=== PATIENT | male | born 1960 | race African-American/Black ===

== ENCOUNTER 2021-05-06 06:26 | Inpatient (IN) | payer BC, OTHER ==
[~2021-05-06] VITALS: Ht 190.5 cm; Wt 78.0 kg
[2021-05-06 07:22] LABS: BASOPHILS % 0.8 % (0.0-2.0); EOSINOPHILS % 2.3 % (0.0-5.0); HEMATOCRIT. 43.5 % (42.0-52.0); HEMOGLOBIN. 14.3 g/dL (14.0-18.0); LYMPHOCYTES % 34.6 % (20.0-50.0); MEAN CORPUSCULAR VOLUME 91.6 fL (80.0-94.0); MEAN PLATELET VOLUME 8.9 fl (7.4-10.4); MONOCYTES % 9.4 % (2.0-8.0); NEUTROPHILS % 52.9 % (40.0-76.0); PLATELET 264 x1000/uL (130-400); RED BLOOD CELL COUNT 4.75 mill/uL (4.7-6.1); RED CELL DISTRIBUTION WIDTH 13.9 % (11.6-14.6)
[2021-05-06 07:29] LABS: CHLORIDE 108 mEq/L (98-107)
[2021-05-06 07:33] LABS: ETHANOL BLOOD < 10 mg/dL
[2021-05-06] MEDS ORDERED: ASPIRIN 81MG TABLET PO ONE (08:45)
[2021-05-06] MEDS ORDERED: FUROSEMIDE 40MG/4ML VIAL IV ONE (08:45)
[2021-05-06 08:59] LABS: *BARBITURATES SCREEN URINE NEGATIVE (NEGATIVE)
[2021-05-06 09:00] LABS: *BENZODIAZEPINES SCREEN URINE NEGATIVE (NEGATIVE); *COCAINE SCREEN URINE NEGATIVE (NEGATIVE); CANNABINOID URINE SCREEN NEGATIVE (NEGATIVE); METHADONE URINE SCREEN NEGATIVE (NEGATIVE); OPIATES URINE SCREEN NEGATIVE (NEGATIVE); PHENCYCLIDINE URINE SCREEN NEGATIVE (NEGATIVE)
[2021-05-06 09:01] LABS: *AMPHETAMINES SCREEN URINE NEGATIVE (NEGATIVE)
[2021-05-06 14:13] VITALS: BP 144/102
[2021-05-06] MEDS ORDERED: COR25 PO (14:54)
[2021-05-06] MEDS ORDERED: ASPI-1497 PO (14:54)
[2021-05-06] MEDS ORDERED: CLON0.2T PO (14:54)
[2021-05-06] MEDS ORDERED: LISI-186 PO (14:54)
[2021-05-06] MEDS ORDERED: ATOR40TA70 PO (14:54)
[2021-05-06] MEDS ORDERED: FURO40TA5 PO (14:54)
[2021-05-06 16:00] VITALS: BP 154/100
[2021-05-06] MEDS ORDERED: KETOROLAC 30MG/ML VIAL IV PRN (16:00)
[2021-05-06] MEDS ORDERED: IPRATROPIUM/ALBUTEROL 0.5-3(2.5)MG/3ML NEB HHN PRN (16:00)
[2021-05-06] MEDS ORDERED: ZOLPIDEM TARTRATE 5MG TABLET PO PRN (16:00)
[2021-05-06] MEDS ORDERED: HYDRALAZINE 20MG/ML VIAL IV PRN (16:00)
[2021-05-06] MEDS ORDERED: GUAIFENESIN 200MG/10ML SUGAR FREE UDC PO PRN (16:00)
[2021-05-06] MEDS ORDERED: TEMAZEPAM 15MG CAPSULE PO PRN (16:00)
[2021-05-06] MEDS ORDERED: CLONIDINE 0.1MG TABLET PO PRN (16:00)
[2021-05-06] MEDS ORDERED: MAGNESIUM/ALUMINUM HYDROXIDE/SIMETHICONE 30ML UDC PO PRN (16:00)
[2021-05-06] MEDS ORDERED: MAGNESIUM HYDROXIDE 400MG/5ML 30ML UDC PO PRN (16:00)
[2021-05-06] MEDS ORDERED: MORPHINE SULFATE 2 MG/ML CPJ (NOT FOR IM USE) IV PRN (16:00)
[2021-05-06] MEDS ORDERED: ACETAMINOPHEN 325MG TABLET PO PRN ×2 (16:00)
[2021-05-06] MEDS ORDERED: DIPHENHYDRAMINE 50MG/ML VIAL IV PRN (16:00)
[2021-05-06] MEDS: FUROSEMIDE 40MG/4ML VIAL IVP SCH (16:38)
[2021-05-06] MEDS: ENOXAPARIN 40MG/0.4ML SYR SUBCUT SCH (16:39)
[2021-05-06 20:00] VITALS: BP 146/92
[2021-05-06] MEDS: ISOSORB DINIT/HYDRALAZINE HCL 20/37.5MG TABLET PO SCH (21:51)
[2021-05-06] MEDS: CARVEDILOL 6.25 MG TABLET PO SCH (21:51)
[2021-05-06] MEDS: SODIUM CHLORIDE 0.9% INJ 3ML FLUSH IVF SCH (21:57)
[2021-05-06] MEDS: ATORVASTATIN CALCIUM 20MG TABLET PO SCH (21:59)
[2021-05-07] VITALS: BP 128/54
[2021-05-07 04:00] VITALS: BP 110/73
[2021-05-07] MEDS: OMEPRAZOLE 20MG CAPSULE EXTENDED RELEASE PO SCH (05:20)
[2021-05-07] MEDS: ISOSORB DINIT/HYDRALAZINE HCL 20/37.5MG TABLET PO SCH ×3 (05:20→21:37)
[2021-05-07] MEDS: SODIUM CHLORIDE 0.9% INJ 3ML FLUSH IVF SCH ×3 (05:21→21:39)
[2021-05-07 07:07] LABS: CHLORIDE 103 mEq/L (98-107)
[2021-05-07 07:21] LABS: PHOSPHORUS 4.3 mg/dL (2.5-4.9)
[2021-05-07 08:00] VITALS: BP 97/65
[2021-05-07] MEDS: CARVEDILOL 6.25 MG TABLET PO SCH (08:45)
[2021-05-07] MEDS: FUROSEMIDE 40MG/4ML VIAL IVP SCH ×2 (08:46→17:32)
[2021-05-07] MEDS ORDERED: LISINOPRIL 10MG TABLET PO SCH (09:00)
[2021-05-07] MEDS ORDERED: POTASSIUM CHLORIDE 20MEQ TABLET SR PO SCH (09:00)
[2021-05-07] MEDS: ASPIRIN 81MG EC TABLET PO SCH (09:28)
[2021-05-07] MEDS: POTASSIUM CHLORIDE 20MEQ TABLET SR PO SCH ×3 (09:28→17:31)
[2021-05-07 12:00] VITALS: BP 132/91
[2021-05-07] MEDS: METOPROLOL TARTRATE 25MG TABLET PO SCH (15:30)
[2021-05-07 16:00] VITALS: BP 125/68
[2021-05-07] MEDS: ENOXAPARIN 40MG/0.4ML SYR SUBCUT SCH (17:32)
[2021-05-07] MEDS: SPIRONOLACTONE 25MG TABLET PO SCH (17:32)
[2021-05-07 20:00] VITALS: BP 103/50
[2021-05-07] MEDS: ATORVASTATIN CALCIUM 20MG TABLET PO SCH (21:38)
[2021-05-08 00:15] VITALS: BP 137/78
[2021-05-08] MEDS: METOPROLOL TARTRATE 25MG TABLET PO SCH ×2 (00:33→08:41)
[2021-05-08 04:00] VITALS: BP_SYST 127; BP_SYST 128; BP_DIAS 87; BP_DIAS 91
[2021-05-08] MEDS: OMEPRAZOLE 20MG CAPSULE EXTENDED RELEASE PO SCH (05:31)
[2021-05-08] MEDS: ISOSORB DINIT/HYDRALAZINE HCL 20/37.5MG TABLET PO SCH (05:32)
[2021-05-08] MEDS: SODIUM CHLORIDE 0.9% INJ 3ML FLUSH IVF SCH (05:32)
[2021-05-08] MEDS: FUROSEMIDE 40MG/4ML VIAL IVP SCH (05:38)
[2021-05-08 07:06] LABS: CHLORIDE 103 mEq/L (98-107)
[2021-05-08 08:00] VITALS: BP 105/67
[2021-05-08] MEDS: ASPIRIN 81MG EC TABLET PO SCH (09:28)
[2021-05-08] MEDS: SPIRONOLACTONE 25MG TABLET PO SCH (09:28)
[2021-05-08] MEDS: POTASSIUM CHLORIDE 20MEQ TABLET SR PO SCH (09:29)
[2021-05-08 12:00] VITALS: BP 126/88
== END 2021-05-08 15:45 | disposition left against medical advice (07) | DRG 291 ==
LOC: ER 08:18 → 8WST 11:05 → EDBEDREQ 11:24 → ENRESERV 13:20
PROVIDERS: ADMIT Internal Medicine; ATTEND Internal Medicine
DX: I11.0 Hypertensive heart disease with heart failure (principal); I50.23 Acute on chronic systolic (congestive) heart failure; E87.1 Hypo-osmolality and hyponatremia; I42.8 Other cardiomyopathies; I25.10 Atherosclerotic heart disease of native coronary artery without angina pectoris; I49.3 Ventricular premature depolarization; Z53.29 Procedure and treatment not carried out because of patient's decision for other reasons; Z87.891 Personal history of nicotine dependence; Z95.5 Presence of coronary angioplasty implant and graft; Z95.810 Presence of automatic (implantable) cardiac defibrillator; Z20.822 Contact with and (suspected) exposure to COVID-19
CPT/HCPCS: 36415; 71045; 80048; 80053; 80305; 80320; 83735; 83880; 84100; 84443; 84484; 85025; 87426; 93005; 93306; 93970; 99291; J1650; J1940; G0480